=== PATIENT | female | born 1940 | race Caucasian/White ===

== ENCOUNTER 2024-03-27 16:12 | Inpatient (IN) | payer OTHER, SELFPAY ==
[2024-03-27] VITALS (18 sets, daily range): BP systolic 79–137; BP diastolic 58–85; BMI 17.6
[2024-03-27 09:36] LABS: % Basophils 1.8 % (0-2); % Immature Granulocytes 0.3 % (0-0.5); % Lymphocytes 38.8 % (20.5-51.1); % Neutrophils 42.1 % (42.2-75.2); Absolute Basophils 0.1 10^3/uL (0-0.2); Absolute Lymphocytes 1.6 10^3/uL (1.2-3.4); Absolute Monocytes 0.6 10^3/uL (0.1-0.6); Absolute Neutrophils 1.7 10^3/uL (1.4-6.5); Hematocrit 36.8 % (37.0-47.0); Hemoglobin 12.7 g/dL (12.0-16.0); Mean Corp Hgb Conc. 34.5 g/dL (33.0-37.0); Mean Corpuscular Hgb 31.1 pg (27.0-31.0); Mean Corpuscular Volume 90.2 fL (81.0-99.0); Mean Platelet Volume 9.5 fL (7.4-10.4); Nucleated Red Blood Cells % 0 %; Platelet Count 199 10^3/uL (130-400); Red Blood Cell Count 4.08 10^6/uL (4.20-5.40); Red Cell Dist. Width 13.2 % (11.5-14.5)
[2024-03-27] MEDS: CARDIZEM 10 MG IV (09:38)
--- NOTE | 2024-03-27 09:41 | ED.GENMED ---
History of Present Illness
General
Chief Complaint: Heart Rate Problem
Time Seen by Provider: 03/27/24 08:58
History of Present Illness
History of Present Illness:
83-year-old female with no reported past medical history presenting to the emergency department for dizziness, lightheadedness, sweating. Patient reports that she had a Mohs procedure on her right lower extremity 5 days ago. The following day
started to have chills, body aches, generally feeling unwell. Started to feel better last evening, however today when she woke up had dizziness and lightheadedness which prompted her to call the ambulance. Per medics, heart rate elevated. EKG per
medics concerning for atrial fibrillation with RVR. Patient reports that she was told that she had been in atrial fibrillation in the past, however is not on any medications for this. She denies any chest pain or difficulty breathing. She denies
cough. She denies headache or visual changes or additional acute medical complaints
Past History
Past History
ED Past Medical History: Arrthythmia and Other (Trigeminal neuralgia Diverticulitis)
ED Past Surgical History: Other (Nasal surgery for epistasis)
Social History
Tobacco: Non-smoker
Alcohol: None
Drug: None
Personal: Single
Living: with family
Employment: Retired
Family History
Family History: Other (Noncontributory)
Phy Exam
Physical Exam
Physical Exam:
General: Well-appearing, no clinical signs of dehydration, nontoxic and in no acute distress
HEENT: protecting airway
Neck: appears supple
CV: Tachycardia, irregular rhythm no evidence of cyanosis
Resp: No accessory muscle use, no increased work of breathing, lungs clear to auscultation bilaterally
Abd: Soft and non-distended, no tenderness to palpation
Extremities: No deformities, no swelling, no erythema
Neuro: alert, no focal neurologic deficit
: deferred
Rectal: deferred
Psych: Normal affect
Skin: Intact
Scores
[id number] Score for Afib Stroke Risk
Age in Years (65=0, 65-74=1, >/=75=2): > or = 75
Sex (Female=+1): Female
Congestive Heart Failure History (Yes=+1): No
Hypertension History (Yes=+1): No
Stroke/TIA/Thromboembolism History (Yes=+2): No
Vascular Disease History (Yes=+1): No
Diabetes Mellitus (Yes=+1): No
Score: 3
Anticoagulation Recommendations: Recommend anticoagulation (as validated in nonvalvular fib)
Sepsis
Sepsis Screening
Sepsis Assessment: Sepsis Ruled Out
Sepsis Screen
Sepsis Screen: Sepsis Ruled Out
Date: 03/30/24
Time: 15:11
Course
Orders/Labs/Results
Orders:
Orders
03/27/24 Breakfast
Cholesterol Lowering
At Your Request: Full Participation
Does patient need a safe tray?: No
Cholesterol Lowering: Sodium, 2 Gram
03/27/24 08:57
EKG [Electrocardiogram (*1)] Urgent
Reason for Study: Atrial Fibrillation
EKG- Treatment ONCE
03/27/24 09:16
COVID-19 Antigen Urgent
Source: Nasal Swab
Complete Blood Count/With Diff Urgent
Comprehensive Metabolic Panel Urgent
INF RAPID [Influenza A+B Rapid Molecular] Urgent
AIDAN Source: Nasal Swab
Specimen Description:
03/27/24 09:25
Diltiazem HCl [Cardizem] 10 mg IV NOW STA
CR Chest - 2 Views Urgent
Comment:
Reason For Exam: afib, chills, fatique
03/27/24 10:38
Diltiazem Extended Release [Cardizem Cd] 120 mg PO NOW STA
03/27/24 11:39
Diltiazem HCl [Cardizem] 10 mg IV NOW STA
03/27/24 11:58
0.9% Sodium Chloride 1000 ml [Nss] 1,000 ml IV BOLUS
03/27/24 12:14
Echo 2D MMode Color/Doppler Routine
Reason for Study: SVT
Amiodarone [Cordarone] 150 mg Dextrose 5%/Water 100 ml [D5w] 100 ml IV NOW
03/27/24 12:15
Amiodarone [Cordarone] 900 mg DEXTROSE 5% PVC-free BAG [D5W PVC-free BAG] 500 ml IV NOW
Initial Dose in mg/min:: 1
Duration of initial dose (hours):: 6
Subsequent dose in mg/min:: 0.5
Duration of subsequent dose (hours):: 18
Maximum dose in mg/min:: 1
Hold and notify provider if:: Heart rate < 60 BPM or SBP < 90 mmHg or MAP < 60 mmHg
03/27/24 12:17
Amiodarone [Cordarone] 150 mg .ROUTE .STK-MED ONE
03/27/24 12:18
Case Management Consult ONCE
Case Management Consult: VN/Home Care
03/27/24 15:24
CARDIOLOGY CONSULT Routine
Consulting Provider: Castillo Bell
Was physician already notified: Yes
03/27/24 15:25
Admit/Transfer Patient As Directed
Co-Sign Provider:
Level of Care: Inpatient admission
Assign to:: IVU
Physician / Group: sonia ware
Diagnosis: SVT
Reason for Hospitalization: SVT
Expected length of stay greater than two midnights?: Yes
ELOS- Estimated Length of Stay in days: 3
I certify the patient meets the requirements for IP care: Yes
PRN Pain Medication Management As Directed
May give lesser potent ordered pain med per pt: Yes
preference::
Protocol:: Medication orders for pain may be administered in a
manner that supports deferring to patient preference
when the pt is:
- Requesting an ordered lesser potent pain medication.
Least to most potent pain medications are defined
as: acetaminophen < NSAID < tramadol < opioids
(morphine, oxycodone, hydromorphone).
- Requesting a lesser dose of the same medication IF
ORDERED.
- Requesting a less intrusive route of administration
if both routes are prescribed by the provider (PO <
IV).
03/27/24 15:27
Code Status As Directed
Resuscitation Status: Full Code
03/27/24 16:29
Troponin I Q6H
03/27/24 17:56
0.9% Sodium Chloride 1000 ml [Nss] 1,000 ml IV 80 mls/hr
Amiodarone [Cordarone] 900 mg DEXTROSE 5% PVC-free BAG [D5W PVC-free BAG] 500 ml IV PER PROTOCOL
Initial Dose in mg/min:: 1
Duration of initial dose (hours):: 6
Subsequent dose in mg/min:: 0.5
Duration of subsequent dose (hours):: 18
Maximum dose in mg/min:: 1
Hold and notify provider if:: Heart rate < 60 BPM or SBP < 90 mmHg or MAP < 60 mmHg
Bisacodyl [Dulcolax] 10 mg RECTAL [id number] PRN
Docusate W/Senna [Senokot-S] 1 tablet PO BIDPRN PRN
Heparin 5,000 units SC Q8
Polyethylene Glycol Powder [Miralax] 17 grams PO DAILYPRN PRN
03/27/24 17:56
Activity As Directed
Activity Level: As Tolerated
Intake/ Output As Directed
Frequency: Per unit guidelines
Vital Signs As Directed
Frequency: Per unit guidelines
Weight As Directed
Frequency: Daily
Pulse Ox/spot Check [RESP] Routine
Quantity: 1
DX Deep Vein Thrombosis Video Routine
03/27/24 18:00
Artificial Tears (Pf) [Refresh Eye Drops (Pf)] 1 drops BOTH EYES QIDPRN PRN
03/28/24 02:02
Complete Blood Count/With Diff IN AM
Comprehensive Metabolic Panel IN AM
Magnesium IN AM
TSH Reflex To Free T4 IN AM
Troponin I Q6H
03/28/24 08:00
omega 6-uom-def-fish oil [Fish Oil] 1 cap PO DAILY
Abnormal Lab Results
03/27/24
09:16
WBC 4.0 L 10^3/uL
(4.8-10.8)
RBC 4.08 L 10^6/uL
(4.20-5.40)
Hct 36.8 L %
(37.0-47.0)
MCH 31.1 H pg
(27.0-31.0)
Neutrophils % 42.1 L %
(42.2-75.2)
Monocytes % 16.0 H %
(1.7-9.3)
BUN 19 H mg/dl
(7-17)
Glucose 112 H mg/dl
(70-99)
03/27/24 09:16
03/27/24 09:16
Vital Signs
Initial and Last Documented VS:
Initial Vital Signs
Pulse Resp Pulse Ox
137 13 99
03/27/24 08:58 03/27/24 08:58 03/27/24 08:58
Last Documented Vital Signs
Temp Pulse Resp BP Pulse Ox
98.0 F 66 16 125/79 98
03/28/24 09:56 03/28/24 11:00 03/28/24 09:56 03/28/24 09:54 03/28/24 09:56
MDM/Problems Addressed
MDM/Problems Addressed:
83-year-old female presenting to the emergency department for lightheadedness and dizziness. Vital signs on arrival significant for tachycardia.
On exam patient is resting comfortably, no acute distress. Patient's heart rate is very elevated, with EKG consistent with atrial fibrillation. Patient reports a remote history of A-fib in the past, however is not on any chronic medications for
it. Unclear when patient went into rhythm, is not anticoagulated, do not feel candidate for cardioversion. Atrial fibrillation could be contributing to patient's presenting symptoms, however also notes that she has been having chills, muscle
aches, so infection is also consideration. Patient is currently afebrile. Viral syndrome is a consideration including COVID. Do not feel related to patient's Mohs surgery. Patient's incision on the right lower extremity is without any erythema
or drainage or infectious findings. Plan for laboratory analysis, viral panel. Will administer diltiazem before elevated heart rate and reassess.
11:00 -patient's heart rate initially responded to diltiazem, however is now back to the 130s to 140s. Blood work is unremarkable and chest x-ray without acute cardiopulmonary disease. Did consult with cardiology, [id number] is 3. Hesitant to
start a beta-maggi given soft blood pressure.
11:50 - Cardiology to bedside. Patient keeps going in and out of sinus rhythm, concern for a flutter. Recommending amiodarone and admission. Feel patient is volume depleted, advising continued IV fluids. At this time patient is hesitant to stay
in the hospital, would need to leave AGAINST MEDICAL ADVICE if deciding to leave.
14:00 -case management involved. Patient has found someone to watch her dog and is now agreeable to staying in the hospital.
*EKG
Interpreted by ED Provider?: Yes
EKG Intrepretation Date: 03/27/24
EKG Intrepretation Time: 09:44
Interpretation: abnormal
Heart Rate: 156
Rate: tachycardiac
Rhythm: a-fib
[place]: normal axis
QRS Pattern: normal QRS
Ischemia: non-specific ST changes
*Critical Care Note
Total Time (30-74mins, 75-104mins- exclusive of procedures): 41
comment:
The high probability of a clinically significant, sudden or life threatening deterioration of the cardiovascular system(s) required my full and direct attention, intervention and personal management. The aggregate critical care time was 41 minutes.
This time is in addition to time spent performing reported procedures but includes the following:
[x] Data Review and interpretation
[x] Patient assessment and monitoring of vital signs
[x] Documentation
[x] Medication orders and management
ED Attending Note
-
Portions of this chart may have been created with voice recognition software.� Occasional wrong word or��sound alike� substitutions may have occurred due to the inherent limitations of voice recognition software.
Discharge Plan
Departure
Patient Disposition: Admit
Date of Disposition: 03/27/24
Time of Disposition: 14:38
Presentation/result/management discussed w/ accepting MD/DO: Hospitalist
Patient with high blood pressure during this ER visit?: No
Condition: Fair
Discharge Problem:
Atrial flutter, Hypotension
Interventions
Interventions:
*Risk Screen - Suicide Last Done: 03/27/24 09:08
*General Assessment Last Done: 03/27/24 09:08
*Neglect/Abuse Screening Last Done: 03/27/24 13:32
*ED COVID-19 Vaccine History Last Done: 03/27/24 09:06
*Nursing Disposition Last Done: 03/27/24 18:27
ED- Cardiac Assessment Last Done: 03/27/24 11:00
ED- Pulmonary Assessment Last Done: 03/27/24 10:27
Discharge Date and Time
Discharge Date/Time: 03/27/24 18:27
[2024-03-27 09:43] LABS: ALT (SGPT) 15 U/L (0-35); AST (SGOT) 25 U/L (14-36); Alkaline Phosphatase 50 U/L (38-126); Blood Urea Nitrogen 19 mg/dl (7-17); Calcium 8.5 mg/dl (8.4-10.2); Carbon Dioxide 23 mmol/L (22-30); Chloride 106 mmol/L (98-107); Estimated Creatinine Clearance 43 ml/min; Glucose 112 mg/dl (70-99); Potassium 3.5 mmol/L (3.5-5.1); Sodium 138 mmol/L (135-145); Total Bilirubin 0.3 mg/dl (0.2-1.3); Total Protein 6.6 g/dl (6.3-8.2); eGFR > 60.00
[2024-03-27 09:46] LABS: COVID-19 Antigen Negative (Negative)
--- NOTE | 2024-03-27 11:31 | CON.CAR ---
Consultation
Consultation Request
Date/Time Consultation Requested: 03/27/24
Date/Time Consultation Performed: 03/27/24
Requesting Provider: Dr Whiting
Performing Provider: DR mcdonald
Reason for Consultation: SVt
Medical History
-
Chief Complaint: Palpitations
History of Present Illness:
83-year-old female with a past medical history of hypercholesterolemia and she reports a very remote history of atrial fibrillation but will not be more specific about the timeframe who presents for evaluation of shortness of breath, weakness and
palpitations. She states she was in her usual state of health until Saturday when she had Mohs procedure. The next day she felt like she had the flu with subjective fever, chills and fatigue. This lasted through . However yesterday she
felt better. Early in the a.m. hours of today she woke up suddenly feeling unwell with a sense of palpitations and tachycardia. On arrival here she is in SVT in the 150s to 60s. Initially she responded well to diltiazem but then became
hypotensive. Currently, she is feeling better. She is tearful because she has a difficult dog at home and no support system to help her care for him should she need to stay.
Past Medical History
Past Medical History: Hypercholesterolemia and Other (Cervical radiculopathy, tried diverticulitis, trigeminal neuralgia.)
Social History
Tobacco: Non-Smoker
Alcohol: None
Living: Alone
Family History
Family History: Reviewed & Not Pertinent
Allergies / Home Medications
Allergy/AdvReac Type Severity Reaction Status Date / Time
codeine Allergy Intermediate Hives Verified 01/23/20 21:39
�Medication �Instructions �Recorded �Confirmed �Type
sulfamethoxazole 800 1 tab PO BID 01/21/19 01/26/19 History
mg-trimethoprim 160 mg tablet
ondansetron 4 mg disintegrating 4 mg PO QIDPRN PRN nausea/vomiting 01/27/19 Rx
tablet #20 tabs
Review of Systems
-
All other systems: Negative unless noted
Physical Exam
Vital Signs
Pulse Resp BP Pulse Ox
83 17 96/69 96
03/27/24 10:00 03/27/24 10:00 03/27/24 10:00 03/27/24 10:27
Lab Results
03/27/24 09:16
03/27/24 09:16
Physical Exam
General: Well Developed and Other (Mucous membranes are dry)
HEENT: Normocephalic
Respiratory: Clear; Negative Wheezes, Crackles or Rhonchi
Cardiac: S1/S2 and Regular Rhythm; Negative Murmur, Rub or Peripheral Edema
Genito-urinary: Costovertebral Angle Tend
Skin: Dry
Neuro: AO x 3
Impression / Plan
-
SVT: She has been in and out of sinus rhythm during my interview. While she is in SVT atrial rates are 300, could be significant for atrial flutter. Additionally she reports a remote history of atrial fibrillation. Therefore, I would recommend
treating as atrial flutter.
Given hypotension with accelerated rates, would opt for IV amiodarone and rhythm control. She is in sinus when I am done with our interview today. Would recommend a 24-hour IV load transitioning to 400 mg p.o. twice daily with a follow-up in the
office within the next 2 weeks to adjust her dose. She is considering whether or not she can stay given her situation with the dog.
Her CHADS2 Vascor is a 3. I recommended anticoagulation. She understands elevated stroke risk and will not consider starting any anticoagulation.
Echocardiogram ordered.
Viral syndrome:She is negative for flu and COVID. She does appear hypovolemic. She has not eaten well in the last several days. Will recommend IV fluid resuscitation while in house.
Discussed with ER physician at the bedside at ER nursing. For now would use IV amiodarone while she is here. If she does not agree to stay would send home on 400 mg p.o. twice daily. However this would not be my medical advice to her. I am
hopeful she will stay for a day of IV loading of amiodarone and IV fluid resuscitation with a discharge tomorrow.
Data Reviewed
-
EKG: Tracing Personally Visualized and interpreted (Supraventricular tachycardia at a rate of 156 bpm, nonspecific ST abnormality)
Radiology: Image Personally Visualized and interpreted (No acute cardiopulmonary process.)
[2024-03-27] MEDS: NSS 1000 IV ×2 (12:12→18:25)
[2024-03-27] MEDS: CORDARONE 103 MG IV (12:36)
--- NOTE | 2024-03-27 12:46 | CM ---
Addendum entered by Roselia Whitlock RN 03/27/24 14:19:
CM received called back from [facility] and they stated they could assist if someone brought the patient's dog to the care home. Patient is not in agreement with that plan as she does not have anyone that can fiber picker the dog.
CM advised patient to call her friend from her Apartment complex Michael. Patient stated that after she spoke with Michael, Michael agreed to help with feeding and care for patient's dog.
CM updated bedside RN and ED MD.
Original Note:
CM met with patient in room. Patient stated that she lives alone and has a small dog that she is concerned about. CM encourage patient to call a friend that lives in the building to assist with care of the dog.
CM left message for [facility] regarding Safe Hold Program. CM is awaiting call back.
[2024-03-27] MEDS: CORDARONE 518 MG IV (12:57)
--- NOTE | 2024-03-27 15:14 | EDRN ---
Amiodarone drip on hold at this time per MD order, see MAR.
--- NOTE | 2024-03-27 15:32 | HPS.HSE ---
Family Physician
-
Family Physician: Paul Campo
Chief Complaint
-
Palpitations
History of Present Illness
83-year-old female with history of paroxysmal atrial fibrillation, trigeminal neuralgia, diverticulitis, right lower extremity basal cell carcinoma status post recent Mohs procedure came to the hospital with dizziness, lightheadedness, sweating and
palpitations. Patient called EMS this morning when she started feeling palpitations. When patient arrived to the ED she was in SVT. Denies any chest pain. Denies any fever/chills. Patient was seen by cardiology in the ER and was put on
amiodarone.
Medical History
Past Medical History
Past Medical History: Reports Arrhythmia and Other (Basal cell carcinoma, trigeminal neuralgia, diverticulitis)
Past Surgical History: Reports None
Social History
Tobacco: Non-smoker
Alcohol: None
Drug: None
Family History
Family History: Not pertinent
Allergies / Home Medications
Allergies reflects when Allergies were last updated in [facility].
Home Medications with original date entered in [facility]
Allergy/Medication List:
Allergies
Allergy/AdvReac Type Severity Reaction Status Date / Time
codeine Allergy Intermediate Hives Verified 01/23/20 21:39
Home Medications
dextran 70-hypromellose eye drops in a dropperette (Artificial Tears (PF) drops in a dropperette) 1 drp BOTH EYES QIDPRN PRN DRY EYE 03/27/24
omega 7-cgu-rfb-fish oil 60 mg-90 mg-500 mg capsule (Fish Oil) 1 cap PO DAILY 03/27/24
Review of Systems
-
History Source: Patient
A 12 point ROS was completed and negative except as noted: Yes
Cardiac: Reports Diaphoresis and Palpitations
Physical Exam
Vital Signs
Vital Signs
Pulse Resp BP Pulse Ox
53 16 111/77 98
12/20/24 15:15 03/27/24 15:00 03/27/24 15:11 03/27/24 15:15
Physical Exam
General: Well Nourished and No Apparent Distress
HEENT: NormoCephalic, Anicteric and Moist mucous membranes
Respiratory: Clear and Non Labored Respirations; No Wheezes
Cardiac: S1/S2 and Regular Rhythm
Breast: Deferred by me
GI: Soft, Non Tender, Non Distended and Normal Bowel Sounds
Rectal: Deferred by Provider
Genito-urinary: No Kang
Musculoskeletal: No Edema
Neuro: Awake, Alert, Oriented and AO x 3
Psych: Calm and Intact Judgment/Insight
Laboratory Results
-
03/27/24 09:16
03/27/24 09:16
Laboratory Results
Total Bilirubin 0.3 mg/dl (0.2-1.3) 03/27/24 09:16
AST 25 U/L (14-36) 03/27/24 09:16
ALT 15 U/L (0-35) 03/27/24 09:16
Alkaline Phosphatase 50 U/L (38-126) 03/27/24 09:16
Data Reviewed
-
Lab Data: Labs Reviewed by me and Discussed with Patient
Impression/Plan
-
Lightheadedness, diaphoresis, palpitations likely secondary to SVT
History of atrial fibrillation
Delmar Vasc score 3, patient is refusing anticoagulation
Initially was given Cardizem however patient was hypotensive. Now started on amiodarone load
Cardiology following
Check troponin
Check echo
Check TSH with reflex to free T4
Admit to IVU
appears dehydrated; start IVF
History of trigeminal neuralgia
History of right lower extremity basal cell carcinoma status post recent Mohs surgery
Patient will follow-up with her outpatient physician
DVT prophylaxis
Heparin
Full code
[2024-03-27 17:03] LABS: Troponin I 0.057 ng/ml
--- NOTE | 2024-03-27 19:06 | PTCARENOTE ---
Received pt from the ED. Pt noted to be in sinus w/ a rate of 58. Amiodarone drip infusing at 1 mg/min. Pt denies any lightheadedness, dizziness or palpitations. Orders noted.
--- NOTE | 2024-03-27 22:43 | VATNOTE ---
VAT paged to assess amio infiltrate in LAC. Upon arrival PIV was removed and restarted by floor in right arm. Area of infiltration was already marked and warm compress was applied. Patient currently denies pain. Swelling to LAC area measuring 11cm
by 15cm, no skin discoloration noted to area other than redness where heat is being applied. Primary RN contacted provider to assess and determine if further treatment, antidote, is warranted. Patient expressed that she is very anxious and does not
want to stay. Primary RN aware. Will continue to monitor area of infiltrate.
--- NOTE | 2024-03-27 23:18 | W.PN.UPDATE ---
Update Note
Progress Note Update
RN notified FOOD CHECKERS AND CASHIERS SUPERVISOR patient IV site has infiltrated, patient was receiving IV Amiodarone infusion through that IV line LAC. Patient seen and evaluated. Left arm above and around the IV site at the Left AC is pink colored, warmth, swelling and with mild
pain. +pulses, +< 3 sec Cap refill, Antidote Hyaluronidase ordered for stage 2. Patient is anxious, explained the situation and the process of antidote. patient verbalized understanding.
[2024-03-27] MEDS: HYLENEX 150 UNITS SC (23:37)
[2024-03-28 00:09] VITALS: BP 146/87
--- NOTE | 2024-03-28 00:34 | PTCARENOTE ---
Pt rec'd at beginning of shift awake,alert anxious. Pt asking if nursing staff could stay with her during the night. Pt reports that she sometimes has panic attacks at home since losing her security intelligence analyst and felt like she was starting with one. Pt
reassured. Sinus on telemetry. Iv Amio gtt infusing via LAC from ED. site patent upon assessment at change of shift however at 2115 pts lac iv site was noted to be swollen. IV stopped immed. with iv site pulled and heat applied, swelling measured
and IV team made aware. New iv site placed in RFA. House SENIOR ADULTS DIRECTOR up to see pt and iV site.
Nursing at bedside for emotional support at this time
--- NOTE | 2024-03-28 00:50 | VATNOTE ---
LAC infiltrate reassess after antidote administration: Swelling still measures 11cmX 15cm with little change in amount of swelling. Slight redness 2cm X 4cm directly above where PIV was inserted. Patient only reports pain when arm is manipulated.
Patient repositioned in bed to better elevate arm with warm compress. Primary RN at bedside. SPORTS BOOKMAKER contacted to update on progress of infiltrate resolution. Discussed whether or not to give a second dose, will await orders and continue to monitor.
[2024-03-28] MEDS: HYLENEX 150 UNITS SC (01:04)
--- NOTE | 2024-03-28 01:28 | PTCARENOTE ---
Pt had originally asked for something for anxiety and to aid in sleep. Melatonin order obtained however pt then refused dose stating 'I'm afraid to take something now because I don't know how I'll respond to it'. Nursing remains at pt's bedside for
emotional support
[2024-03-28] MEDS: TYLENOL 650 MG PO (01:44)
[2024-03-28 01:53] VITALS: BMI 16.8
--- NOTE | 2024-03-28 02:11 | PTCARENOTE ---
Pt agreed to take Tylenol for sleep. remains anxious when nursing steps out of room. Pt reminded to call for emotional support if needed. LFA infiltrate little less swollen, elevated on pillow. Pt denies pain at site. RFA IV site patent with Amio
infusing.
[2024-03-28 02:12] LABS: % Eosinophils 0.4 % (0-6); % Immature Granulocytes 0.2 % (0-0.5); % Lymphocytes 32.4 % (20.5-51.1); % Monocytes 11.1 % (1.7-9.3); % Neutrophils 54.9 % (42.2-75.2); Absolute Basophils 0.1 10^3/uL (0-0.2); Absolute Lymphocytes 1.6 10^3/uL (1.2-3.4); Absolute Monocytes 0.6 10^3/uL (0.1-0.6); Absolute Neutrophils 2.7 10^3/uL (1.4-6.5); Hematocrit 33.8 % (37.0-47.0); Hemoglobin 11.3 g/dL (12.0-16.0); Mean Corp Hgb Conc. 33.4 g/dL (33.0-37.0); Mean Corpuscular Hgb 30.9 pg (27.0-31.0); Mean Corpuscular Volume 92.3 fL (81.0-99.0); Mean Platelet Volume 9.3 fL (7.4-10.4); Nucleated Red Blood Cells % 0 %; Platelet Count 191 10^3/uL (130-400); Red Blood Cell Count 3.66 10^6/uL (4.20-5.40); Red Cell Dist. Width 13.4 % (11.5-14.5)
[2024-03-28 02:30] LABS: ALT (SGPT) 14 U/L (0-35); AST (SGOT) 23 U/L (14-36); Albumin 3.7 g/dl (3.5-5.0); Alkaline Phosphatase 41 U/L (38-126); Blood Urea Nitrogen 19 mg/dl (7-17); Calcium 8.3 mg/dl (8.4-10.2); Carbon Dioxide 20 mmol/L (22-30); Chloride 109 mmol/L (98-107); Estimated Creatinine Clearance 41 ml/min; Glucose 97 mg/dl (70-99); Magnesium 1.9 mg/dl (1.6-2.3); Potassium 3.7 mmol/L (3.5-5.1); Sodium 137 mmol/L (135-145); Total Bilirubin 0.4 mg/dl (0.2-1.3); Total Protein 6.2 g/dl (6.3-8.2); eGFR > 60.00
[2024-03-28 02:42] LABS: Troponin I 0.035 ng/ml
[2024-03-28 03:02] LABS: TSH Reflex To Free T4 8.94 uIU/ml (0.47-4.68)
[2024-03-28 03:32] LABS: Free T4 1.01 ng/dl (0.78-2.19)
--- NOTE | 2024-03-28 04:02 | VATNOTE ---
LAC reassessment: swelling has decreased, red area appears the same. Patient with arm elevated on pillow, no reports of pain. Will continue to monitor.
--- NOTE | 2024-03-28 05:22 | PTCARENOTE ---
Pt awoken to use bsc. left arm swelling much improved. remains elevated on pillow. pt denies discomfort.
[2024-03-28 09:54] VITALS: BP 125/79
--- NOTE | 2024-03-28 11:21 | W.PN.HOSP.TC ---
Today's Communication/Plan
-
monitor vitals
see plan
dc today on PO amio
Cardiology and PCP follow-up outpatient
Time of discharge 36 minutes
Assessment / Plan
Assessment / Plan
Lightheadedness, diaphoresis, palpitations likely secondary to SVT
History of atrial fibrillation
now remains in NSR, rate controlled
Delmar Vasc score 3, patient is refusing anticoagulation
Initially was given Cardizem however patient was hypotensive. Now started on amiodarone load, now being switched to p.o. amiodarone. Per cardiology 400 mg twice daily to 04/07/2024. Starting 04/08/2023 decreased to 20 mg daily. Patient will see
cardiology outpatient
Cardiology following
echo with preserved EF
Check TSH with reflex to free T4
Mild elevated troponin likely secondary to known ischemic myocardial injury
Monitor
Elevated TSH, normal free T4
Repeat labs again in 3 to 4 weeks. Discussed with patient.
mild skin discoloration 2/2 amiodarone
now improving, s/p Antidote Hyaluronidase
History of trigeminal neuralgia
History of right lower extremity basal cell carcinoma status post recent Mohs surgery
Patient will follow-up with her outpatient physician
DVT prophylaxis
Heparin
Full code
General: Well Nourished and No Apparent Distress
HEENT: NormoCephalic, Anicteric and Moist mucous membranes
Respiratory: Clear and Non Labored Respirations; No Wheezes
Cardiac: S1/S2 and Regular Rhythm
GI: Soft, Non Tender, Non Distended and Normal Bowel Sounds
Genito-urinary: No Kang
Musculoskeletal: No Edema
Neuro: Awake, Alert, Oriented and AO x 3
Psych: Calm and Intact Judgment/Insight
Anticipated Discharge: Today
Subjective/Interval History
-
Date of Service: March 28, 2024
denies dizziness,pain
Objective Data
-
Labs:
Laboratory Results
03/28/24
02:02
WBC 5.0
Hgb 11.3 L
Hct 33.8 L
Plt Count 191
Sodium 137
Potassium 3.7
Chloride 109 H
Carbon Dioxide 20 L
BUN 19 H
Creatinine 0.7
Glucose 97
Calcium 8.3 L
Total Bilirubin 0.4
AST 23
ALT 14
Alkaline Phosphatase 41
Vital Signs:
Vital Signs
Temp Pulse Resp BP Pulse Ox
98.0 F 66 16 125/79 98
03/28/24 09:56 03/28/24 11:00 03/28/24 09:56 03/28/24 09:54 03/28/24 09:56
I&O
03/27/24 03/28/24 03/29/24
06:59 06:59 06:59
Intake Total 983 / 983
Output Total 400 / 400
Balance 583 / 583
--- NOTE | 2024-03-28 11:30 | W.PN.CD ---
Today's Communication / Plan
-
Discharge medications: Amiodarone 400 mg twice daily until 04/07/2024 then amiodarone 200 mg daily going forward. She declines anticoagulation.
She has follow-up with our office on 04/20/24 @ 3pm with GRISELDA Marr.
Impression / Plan
-
83-year-old female with a past medical history of hypercholesterolemia and remote history of atrial fibrillation 20+ years ago who presents for evaluation of shortness of breath, weakness and palpitations, found to have SVT concerning for atrial
flutter.
# SVT, concern for atrial flutter
-She initially responded to diltiazem in the ED but became hypotensive so was started on IV amiodarone
-Stop IV amiodarone and transition to p.o. amiodarone 400 mg twice daily. She will continue this until 04/07/2024. On 04/08/2024, she will switch to amiodarone 200 mg daily.
-[id number] score is 3. She is declining anticoagulation and understands the risk of stroke.
-Echocardiogram this admission with normal BiV function and no valvular disease.
# Troponin elevation due to nonischemic myocardial injury
-This is likely due to her SVT with fast rates
-No signs/symptoms of ACS. Okay to stop trending.
Subjective: Patient feels well today. She is eager to go home. Overnight her IV infiltrated with IV Amio running. Telemetry reveals sinus rhythm with heart rate in the 50s.
Physical Exam
Vital Signs/Labs
Vital Signs
Temp Pulse Resp BP Pulse Ox
98.0 F 66 16 125/79 98
03/28/24 09:56 03/28/24 11:00 03/28/24 09:56 03/28/24 09:54 03/28/24 09:56
03/27/24 03/28/24 03/29/24
06:59 06:59 06:59
Actual Weight 43 kg
03/28/24 02:02
03/28/24 02:02
Magnesium 1.9 mg/dl (1.6-2.3) 03/28/24 02:02
Free T4 1.01 ng/dl (0.78-2.19) 03/28/24 02:02
LAB Results
03/27/24 03/27/24 03/28/24
16:29 21:30 02:02
Troponin I 0.057 H* Cancelled 0.035 H*
Physical Exam
Constitutional: No acute distress and Comfortable
Cardiovascular: Rhythm & rate is regular, Pedal edema is absent, S1S2 is normal and Murmur/rub/gallop absent
Respiratory: Respiratory effort normal and Lungs clear to auscul.
Neuro/Psych: AO x 3
Data Reviewed
-
Date of Service: March 28, 2024
Medical Decision Making: Reviewed Test Results, Independent Historian Assessment, Test Interpretation and Review of Case with other Provider
EKG: Tracing Personally Visualized and interpreted
Echo: Report Reviewed by me
Labs: Labs Reviewed by me
--- NOTE | 2024-03-28 11:36 | W.DCSUMMARY ---
Discharge Summary
Discharge Data
Date of Admission: 03/27/24
Date of Discharge: 03/28/24
-
Pending Results: No
Hospital Course
83-year-old female with past medical history of hyperlipidemia, remote history of atrial fibrillation came to the hospital with supraventricular tachycardia. Patient was seen by cardiology throughout hospitalization. There were some episodes of
intermittent atrial fibrillation so patient was initially given Cardizem however then she developed hypotension. Patient was later started on amiodarone. Her Delmar Vascor was 3 and anticoagulation was recommended however patient refused.
Echocardiogram was done which showed normal ejection fraction and no valvular disease. Patient symptoms continue to improve and then IV amiodarone was transitioned to oral prior to discharge. Patient also had mild troponin elevation which was
likely thought was secondary to nonischemic myocardial injury. She also had IV infiltration from amiodarone where Hyaluronidase was given. She did had elevated TSH however normal free T4. She was instructed to follow-up with primary care
provider for repeat thyroid labs in 3 to 4 weeks. Once patient symptoms continue to improve, she was then discharged home with instructions to follow-up with PCP and cardiology outpatient.
Discharge Plan
-
Patient Disposition: Home (Routine Discharge)
Discharge Diagnosis/Procedures: Supraventricular tachycardia
Hypotension
Elevated TSH
Diet: As tolerated
Activity: As tolerated
Driving Restrictions: As prior to admission
Blood Work: TSH with reflex to free T4 in 3 to 4 weeks with PCP
Activity Restrictions/Additional Instructions:
Continue 400 mg twice daily amiodarone through 04/07/2024. Starting 04/08/2023 decrease amiodarone to 200 mg daily
Referrals:
Paul Campo MD [Family Provider] - in less than 1 week
Castillo Bell MD [Active] - in one to two weeks
Prescriptions:
New
amiodarone 200 mg Tablet
400 mg PO BID Qty: 60 1RF
Rx Instructions:
400 mg BID amiodarone through 04/07/2024.Starting 04/08/2023 decrease amiodarone to 200 mg daily
Continued
Artificial Tears (PF) Dropperette
1 drp BOTH EYES QIDPRN PRN (Reason: DRY EYE)
omega 3-pzl-hvn-fish oil [Fish Oil] 60-90-500 mg Capsule
1 cap PO DAILY
Discharge Orders:
Discharge Patient (As Directed); Ordered 03/28/24
Ordered By: Serjio Sanders
Discharge Date and Time
Discharge Date/Time: 03/28/24 12:35
Print Language: FRENCH
[2024-03-28] MEDS: PACERONE 400 MG PO (11:46)
== END 2024-03-28 12:35 | disposition home or self-care (01) | DRG 309 ==
LOC: IVU 16:12
PROVIDERS: ADMITTING PHYSICIAN Internal Medicine; CONSULT PHYSICIAN Internal Medicine Cardiovascular Disease; EMERGENCY PHYSICIAN Student in an Organized Health Care Education/Training Program; FAMILY PHYSICIAN Family Medicine
DX: I47.10 Supraventricular tachycardia, unspecified (principal); I5A Non-ischemic myocardial injury (non-traumatic); I48.0 Paroxysmal atrial fibrillation; I95.9 Hypotension, unspecified; E78.00 Pure hypercholesterolemia, unspecified
CPT/HCPCS: 71046; 80053; 83735; 84439; 84443; 84484; 85025; 87502; 87811; 93005; 93306; 96361; 96374; 96376; 99291

== ENCOUNTER → 2024-05-04 14:08 | Outpatient (REF) | payer OTHER, SELFPAY ==
[2024-05-04 15:42] LABS: TSH Reflex To Free T4 4.32 uIU/ml (0.47-4.68)
== END ==
LOC: REG 14:08
PROVIDERS: ATTENDING PHYSICIAN Student in an Organized Health Care Education/Training Program
DX: R79.89 Other specified abnormal findings of blood chemistry (principal)
CPT/HCPCS: 36415; 84443